=== PATIENT | female | born 1975 | race Caucasian/White ===

== ENCOUNTER 2021-10-14 15:51 | Outpatient (CLI) | payer OTHER | END 2021-10-14 15:52 | disposition home or self-care (01) | LOC: NAV RAD 15:51 | PROVIDERS: ATTEND Family Medicine | DX: M25.511 Pain in right shoulder (principal) ==

== ENCOUNTER 2022-01-08 15:42 | Outpatient (CLI) | payer BC | END 2022-01-08 15:43 | disposition home or self-care (01) | LOC: NAV RAD 15:42 | PROVIDERS: ATTEND Nurse Practitioner Family | DX: R10.9 Unspecified abdominal pain (principal) | CPT/HCPCS: 71046 ==

== ENCOUNTER 2022-10-29 16:20 | Outpatient (CLI) | payer BC | END 2022-10-29 16:21 | disposition home or self-care (01) | LOC: NAV RAD 16:20 | PROVIDERS: ATTEND Family Medicine | DX: E06.1 Subacute thyroiditis (principal) ==

== ENCOUNTER 2024-05-16 12:35 | Outpatient (CLI) | payer OTHER | END 2024-05-16 12:36 | disposition home or self-care (01) | LOC: NAV RAD 12:35 | PROVIDERS: ATTEND Nurse Practitioner Family | DX: M25.561 Pain in right knee (principal) ==

== ENCOUNTER 2024-12-09 14:00 | Outpatient (CLI) | payer OTHER | END 2024-12-09 14:01 | disposition home or self-care (01) | LOC: NAV RAD 14:00 | PROVIDERS: ATTEND Nurse Practitioner Family | DX: M25.532 Pain in left wrist (principal) ==